=== PATIENT | male | born 1970 | race Caucasian/White ===

== ENCOUNTER 2021-02-08 08:12 | Emergency (ER) | payer OTHER ==
[~2021-02-08] VITALS: Ht 170.2 cm; Wt 77.1 kg
[2021-02-08 08:12] VITALS: BP_SYST 159
[2021-02-08] MEDS ORDERED: OMEP20CA15 PO (08:32)
[2021-02-08 09:28] VITALS: BP_SYST 159
== END 2021-02-08 09:31 | disposition home or self-care (01) ==
LOC: SED 08:12
DX: R13.10 Dysphagia, unspecified (principal); Z79.899 Other long term (current) drug therapy
CPT/HCPCS: 70360-TC; 71045; 93005; 99284